=== PATIENT | female | born 1985 | race Caucasian/White ===

== ENCOUNTER 2017-03-11 18:33 | Emergency (ER) | payer OTHER ==
[2017-03-11 18:39] VITALS: TEMP 97.4
[2017-03-11] MEDS ORDERED: MORPHINE SULFATE 4 MG/ML SYRINGE IM STA (19:42)
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
[2017-03-11 20:26] LABS: Appearance,Urine Cloudy (Clear); Bacteria,Urine Few /hpf; Basophils % (A) 1 %; Bilirubin,Urine Negative (Negative); CH 30.8; CHCM 34.3; Eosinophils # (A) 0.1 k/uL (0-0.7); Eosinophils % (A) 2 %; Glucose,Urine (UA) Negative (Negative); HCT 39.3 % (34.0-46.0); HDW 2.66; HGB 13.3 gm/dL (11.4-16.0); Ketones,Urine Negative (Negative); Leukocyte Esterase,Urine Moderate (Negative); Luc # (Auto) 0.06; Luc % (Auto) 1; Lymphocytes # (A) 0.7 k/uL (1.0-4.8); Lymphocytes % (A) 15 %; MCH 30.4 pg (25.0-35.0); MCHC 33.8 g/dL (31.0-37.0); Mean Platelet Volume 9.1; Monocytes # (A) 0.2 k/uL (0-1.0); Monocytes % (A) 4 %; Mucus,Urine Occasional /hpf; Neutrophils # (A) 3.5 k/uL (1.3-7.7); Neutrophils % (A) 77 %; Nitrite,Urine Negative (Negative); Particle Count 5755; Protein,Urine Negative (Negative); RBC 4.37 m/uL (3.80-5.40); RBC,Urine 1 /hpf (0-5); Specific Gravity,Urine 1.013 (1.001-1.035); Squamous Epithelial Cell,Urine 7 /hpf (0-4); UA Billing (MACRO vs. MICRO) MICRO; Urobilinogen,Urine <2.0 mg/dL (<2.0); WBC 4.5 k/uL (3.8-10.6); WBC (Perox) 4.62; WBC,Urine 3 /hpf (0-5)
[2017-03-11 20:39] LABS: ALT 52 U/L (9-52); AST 32 U/L (14-36); Alkaline Phosphatase 93 U/L (38-126); Anion Gap 12 mmol/L; Blood Urea Nitrogen 8 mg/dL (7-17); C Reactive Protein 47.3 mg/L (<10.0); Calcium 9.1 mg/dL (8.4-10.2); Carbon Dioxide 24 mmol/L (22-30); Chloride 103 mmol/L (98-107); Glucose 95 mg/dL (74-99); Non-African American GFR(MDRD) >60 (>60 ml/min/1.73 sqM); Sodium 139 mmol/L (137-145); Total Bilirubin 0.4 mg/dL (0.2-1.3); Total Protein 7.2 g/dL (6.3-8.2)
[2017-03-11] MEDS ORDERED: RX INFO: IV CONTRAST WAS GIVEN 1 EACH MISC MISCELLANE PRN (20:54)
[2017-03-11] MEDS ORDERED: MORPHINE SULFATE 10 MG/ML SYRINGE IVP STA (20:57)
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
[2017-03-11] MEDS ORDERED: MORPHINE SULFATE 4 MG/ML SYRINGE IV STA (22:52)
[2017-03-11 23:16] VITALS: BP 134/87; PULSE 87; RESP 16
== END 2017-03-11 23:15 | disposition home or self-care (01) ==
LOC: EC 18:33
DX: R10.31 Right lower quadrant pain (principal); M54.9 Dorsalgia, unspecified; Z91.018 Allergy to other foods
CPT/HCPCS: 36415; 80053; 85025; 86140; 81001; 81025; 74177; 99284; 96374; 96376; 96372; J2270 ×2; Q9967

== ENCOUNTER 2017-10-04 13:27 | Emergency (ER) | payer OTHER ==
[2017-10-04 13:34] VITALS: RESP 18
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
[2017-10-04] MEDS ORDERED: ORPHENADRINE 30 MG/ML 2 ML VIAL IM STA (15:45)
[2017-10-04] MEDS ORDERED: KETOROLAC 60 MG/2 ML VIAL IM STA (15:45)
[2017-10-04 15:57] VITALS: BP 140/70; PULSE 78; TEMP 98
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
== END 2017-10-04 15:57 | disposition home or self-care (01) ==
LOC: EC 13:27
DX: S39.012A Strain of muscle, fascia and tendon of lower back, initial encounter (principal); S16.1XXA Strain of muscle, fascia and tendon at neck level, initial encounter; S00.03XA Contusion of scalp, initial encounter; S00.83XA Contusion of other part of head, initial encounter; S00.81XA Abrasion of other part of head, initial encounter; I10 Essential (primary) hypertension; Z79.3 Long term (current) use of hormonal contraceptives; Z79.899 Other long term (current) drug therapy; Z91.02 Food additives allergy status; V48.6XXA Car passenger injured in noncollision transport accident in traffic accident, initial encounter; Y92.410 Unspecified street and highway as the place of occurrence of the external cause
CPT/HCPCS: 72125; 70486; 70450; 99284; 96372 ×2; J2360; J1885

== ENCOUNTER → 2019-02-21 | Outpatient (CLI) | payer OTHER ==
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
== END | disposition home or self-care (01) ==
LOC: RADXRMAIN 13:29
PROVIDERS: ATTEND Physician Assistant
DX: M77.31 Calcaneal spur, right foot (principal)